=== PATIENT | female | born 1990 | race Two or more races ===

== ENCOUNTER 2024-08-09 19:07 | Emergency (ER) | payer MEDICAID, SELFPAY ==
[2024-08-09 19:07] VITALS: BMI 29.0
[2024-08-09 19:28] VITALS: BP 136/87; PULSE 95; RESP 18; TEMP 36.8; O2SAT 95
--- NOTE | 2024-08-09 20:06 | PD.EDFMALE ---
ED Female Urogenital RME/HPI General Chief complaint: Urogenital-Female Stated complaint: RECTAL PAIN Time Seen by Provider: 08/09/24 19:30 Source: patient Arrival date/time: 08/09/24 19:07 Mode of arrival: ambulatory Limitations: no limitations RME / HPI RME / HPI Narrative: 33-year-old female with known internal and external hemorrhoids presents for evaluation of chronic rectal pain that has been worse over the past x 3 days. Patient denies gross rectal bleeding, fever, chills, nausea, vomiting. Patient is being followed by outpatient GI and has an appointment with them this week. Patient was prescribed a bowel regimen, to which which she says she has been adhering. Denies prior sclerotic or need for surgical intervention of hemorrhoids. Patient reports that she is taking analgesics [id number] with minimal improvement in symptoms. She reports that she is taking sitz bath's as recommended with minimal improvement in symptoms. Related Data Home Medications ?Medication ?Instructions ?Recorded ?Confirmed vit no.95-ferrous 1 tab PO DAILY 10/17/20 12/27/20 fumarate 28 mg-folic acid 800 mcg tablet () Allergies Allergy/AdvReac Type Severity Reaction Status Date / Time No Known Allergies Allergy Verified 10/26/22 12:48 Review of Systems Constitutional Constitutional: Denies chills, Denies fever(s), Denies headache(s), Denies lethargy and Denies weakness ENT Ears, Nose, Mouth, and Throat: Denies headache(s) and Denies odynophagia Cardiovascular Cardiovascular: Denies chest pain, Denies dyspnea and Denies leg edema Respiratory Respiratory: Denies dyspnea Gastrointestinal Gastrointestinal: Denies abdominal pain, Denies change in bowel habits, Denies change in stool character, Denies constipation, Denies cramping, Denies hematochezia, Denies melena, Denies odynophagia, Denies vomiting and Reports other (Endorses rectal pain.) Genitourinary Genitourinary: Denies abnormal menses and Denies dysuria Musculoskeletal Musculoskeletal: Denies back pain and Denies tingling Integumentary/Breasts Skin/Breast: Reports non-healing lesions (Known hemorrhoids.) and Denies wounds Neurologic Neurologic: Denies headache(s), Denies tingling and Denies weakness Past Medical History Past Medical History NEUROLOGIC: Negative Neurological Disorders or Seizures CARDIAC: Positive Cardiac Disorders (HTN) and Hypertension; Negative Myocardial Infarction, Atrial Fibrillation, Angina, Heart Murmur, Atherosclerotic Heart Disease, Peripheral Vascular Disease, Hypercholesterolemia, Aneurysm, Congestive Heart Failure, Congenital Heart Disease, Valvular Heart Disease, Rheumatic Fever, Cardiomyopathy, Edema, Pericarditis, Cellulitis, Deep Vein Thrombosis, Hypotension or Varicose Veins RESPIRATORY: Negative Chronic Obstructive Pulmonary Disease (COPD) GASTROINTESTINAL: Negative Gastrointestinal Disorders, Hepatitis or Colorectal Cancer GENITOURINARY: Negative Genitourinary Disorders or Renal Disease REPRODUCTIVE: Positive Previous Pregnancies (X2); Negative Breast Cancer, Pelvic Inflammatory Disease or Uterine Prolapse MUSCULOSKELETAL: Negative Musculoskeletal Disorders, Bone Cancer or Carpal Tunnel Syndrome ENT: Negative Cataracts ENDOCRINE: Positive Endocrine Disorders; Negative Diabetes Mellitus Type 1, Diabetes Mellitus Type 2, Hypoglycemia, [place]'s Syndrome, Dileep's Disease, Hyperthyroidism, Hypothyroidism, Parathyroid Disease, Pituitary Disease, Systemic Lupus Erythematosus, Syndrome of Inappropriate Antidiuretic Hormone (SIADH), Adrenal Disease or Graves' Disease HEMATOLOGIC: Negative Blood Disorders OTHER HISTORY: Positive Hospitalization ([facility]); Negative Autoimmune Disease, Down Syndrome, Developmental Delay, Shingles, Falls, Blood Transfusions, Blood Transfusion Reaction, Anesthesia Reactions, Organ Transplant, Chemotherapy, Radiation Therapy, Hyperbaric Therapy, MRSA, VRSA, Vancomycin-Resistant Enterococci, Human Immunodeficiency Virus (HIV), Chicken Pox, Measles, Mumps, Rubella ([place] Measles), Pertussis, Clostridium Difficile, Cancer, Breast Cancer, Cervical Cancer, Colorectal Cancer, Lung Cancer or Ovarian Cancer Family History FAMILY HISTORY: Positive Family Cardiac Disorders (PARENTS , GRANDPARENTS HTN); Negative Family Psychiatric Problems, Family Respiratory Disorders, Family Gastrointestinal Problems, Family Cancer, Family Surgery or Family Anesthesia Reaction Surgical History SURGICAL: Positive Eye Surgery (LASER EYE SX 2018) and Tonsillectomy (2003); Negative Cardiac Surgery, Open Heart Surgery, Coronary Artery Bypass Graft, Valve Replacement, Vascular Surgery, Coronary Stent, Pacemaker, Angiogram, Auto Implanted Cardiovert Defib, Carotid Endarterectomy, Endocrine Surgery, Thyroidectomy, Ear Surgery, Tympanostomy Tube, Oral Surgery, Adenoidectomy, Cochlear Implant, Corneal Transplant, Throat Surgery, Abdominal Surgery, Tracheostomy, Gastric Bypass Surgery, Gastrostomy, Bowel Surgery, Nephrectomy, Transurethral Resection, Joint Replacement, Amputation, Open Reduction Internal Fixation, Arthroscopy, Neurologic Surgery, Brain Shunt, Mastectomy, Lumpectomy, Hysterectomy, Tubal Ligation, Section, Vasectomy or Organ Transplant Social History SMOKING STATUS: Never smoker ED Exam General Limitations: Present no limitations General appearance: Present alert and in distress (Appears uncomfortable.) Head Head exam: Present atraumatic and normocephalic Eye Eye exam: Present normal appearance and EOMI; Absent scleral icterus ENT ENT exam: Present normal exam, normal oropharynx and mucous membranes moist Chest Chest inspection: Present normal inspection and symmetric chest wall rise Respiratory Respiratory exam: Absent respiratory distress Cardiovascular Cardiovascular exam: Present regular rate and +S1 Abdominal Exam Abdominal exam: Present soft; Absent distention Rectal Exam Rectal exam: Present normal inspection, normal rectal tone and tenderness; Absent heme (-) stool, black stool, bloody stool or hemorrhoids Extremities Exam Extremities exam: Present normal inspection and full ROM Back Exam Back exam: Present normal inspection and full ROM Neurological Exam Neurological exam: Present alert and normal gait Psychiatric Psychiatric exam: Present normal affect Skin Skin exam: Present warm, dry and normal color Course Quality Measures none Orders Category Date Time Status Ketorolac Inj [Toradol Inj] Med 08/09/24 20:07 Discontinued 30 mg IM X1 ONE Reevaluation(s) Reevaluation #1: 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 Time: 20:06 Vital Signs Vital signs: Vital Signs Temperature 98.3 F 08/09/24 19:28 Pulse Rate 95 08/09/24 19:28 Respiratory Rate 18 08/09/24 19:28 Blood Pressure 136/87 H 08/09/24 19:28 Pulse Oximetry (%) 95 08/09/24 19:28 Oxygen Delivery Method Room Air 08/09/24 19:28 Pulse ox 95% on room air, within normal limits. Procedures -ED Stool Hemoccult Procedural Steps Taken: stool placed in appropriate test area and developer placed on stool and control areas Hemoccult result: negative Urogenital - Female MDM Narrative MDM Narrative:: 33-year-old female presents with chronic rectal pain that has been worse over the past several days. Vital signs stable. Fortunately Hemoccult test was negative. No evidence of sclerotic external hemorrhoids on exam. No anoscope available therefore cannot check for internal hemorrhoids at this time. Patient has outpatient GI care established and an appointment this week. I advised her to continue as planned with GI appointment and continue bowel regimen as prescribed. Patient's pain was somewhat improved in the department following Toradol. Ultimately patient was discharged with return precautions. Patient data External records reviewed:: [facility] previous records Clinical information provided by:: patient Social determinants that could affect healthcare access:: none Patient has the following chronic illnesses:: Internal and external hemorrhoids. How is presenting disease/condition affected by chronic disease/condition?: caused by Evaluation data The following diagnostics were reviewed and interpreted by me:: other (specify) Lab and/or radiology exams considered but not ordered:: Considered not ordered. Interpretation Summary: Considered not ordered. Medications / Prescriptions Medications or Prescriptions considered but not ordered:: Rx given. Medication administrations:: Medication Administration History Discontinued Medications Ketorolac Tromethamine (Ketorolac Inj 60 Mg/2 Ml Vial) 30 mg IM X1 ONE Stop: 08/09/24 20:08 Last Admin: 08/09/24 20:46 Dose: 30 mg Documented By: VICENTA Rx given. Consultations Consultation(s) initiated? (list below): No Diagnosis Urogenital Female Differential Diagnosis: urinary tract infection and other (Sclerosed hemorrhoids, internal hemorrhoids, external hemorrhoids, occult GI bleed, anal fissure.) Most likely diagnosis given after review of the tests above:: Chronic pain. Admission Indicated Admission indicated?: not indicated Admission Request Was there a request for admission?: No Disposition Plan Disposition Plan: Discharge Discharge Attestation Discharge Attestation: The patient and all family members were given an opportunity to ask questions and understood the discharge instructions. Discharge instructions specifically effects, indications for sooner follow up or return to the emergency department, and the expected course of current diagnosis. Patient condition: Stable Discharge Plan Plan Patient Disposition: HOME (Self Care) Disposition Comment: stable Prescriptions/Referrals Prescriptions/Med Rec: No Action PNV cmb#95-ferrous fumarate-FA [] 28 mg iron- 800 mcg tablet 1 tab PO DAILY Patient Comments: TAKE 1 TABLET BY MOUTH EVERY DAY Problem List Clinical Impression: Chronic rectal pain Patient/Caregiver Discharge Instructions Other Activity Instructions:: Follow-up with GI within the next 24 to 48 hours as discussed. Return to the ED if you start to bleed from your rectum, feel dizzy, lightheaded or have any change or worsening in your symptoms. Continue to follow bowel regimen as prescribed. Take Tylenol as needed for pain. Continue to do sitz bath's at home. Education Materials: ED Chronic Pain Print Language: German Stand Alone Forms: [employer] Award Info., Patient Portal Info Letter PA/FARM MANAGEMENT ADVISER Supervising Physician PA/FARM MANAGEMENT ADVISER Supervising Physician: Dr. [email or web address]
[2024-08-09] MEDS: KETOROLAC INJ 60 MG/2 ML VIAL 30 MG IM (20:46)
== END 2024-08-09 20:52 | disposition home or self-care (01) ==
LOC: SERX 21:06
PROVIDERS: Emergency Provider Emergency Medicine; PCP Family Medicine
DX: K62.89 Other specified diseases of anus and rectum (principal); G89.29 Other chronic pain; K64.8 Other hemorrhoids; K64.4 Residual hemorrhoidal skin tags
CPT/HCPCS: 96372; 99283; J1885